=== PATIENT | male | born 1990 | race Caucasian/White ===

== ENCOUNTER → 2019-08-01 | Outpatient (CLI) | payer BC ==
--- NOTE | 2019-08-02 13:00 | MRI ---
EXAM DESCRIPTION: MRI right knee CLINICAL HISTORY: Right knee pain COMPARISON: None. TECHNIQUE: Multiplanar, multisequence MR images of the right knee FINDINGS: Proximal patellar tendinosis involving the central origin. Low-grade interstitial partial tear. Tendinosis and partial tear involves about a 1 cm segment. Distal patellar tendon is normal. Quadriceps tendon and tendons of the posterior medial knee are normal Biceps femoris, popliteus and iliotibial band tendons are normal ACL, PCL, MCL and fibular collateral ligaments are normal No medial or lateral meniscal tear. No high-grade chondrosis or osteochondral lesion femorotibial or patellofemoral Minimal joint fluid. No synovitis or intra-articular body. IMPRESSION: Proximal patellar tendinosis and low-grade interstitial partial tear Electronically signed by: Jason Rosas MD 08/02/2019 12:59 PM CDT
== END ==
LOC: MRI 10:00
PROVIDERS: ATTEND Family Medicine
DX: M76.51 Patellar tendinitis, right knee (principal)